=== PATIENT | female | born 1960 | race Caucasian/White ===

== ENCOUNTER 2020-04-17 14:04 | Emergency (ER) | payer MEDICARE, MEDICAID, SELFPAY ==
[2020-04-17 14:05] VITALS: BP 115/66; PULSE 78; RESP 16; TEMP 36.4; O2SAT 96; BMI 27.4
--- NOTE | 2020-04-17 14:29 | CT_ITS ---
STUDY: CT PELVIS WITHOUT CONTRAST REASON FOR EXAM: Female, 59 years old. injury and pain RADIATION DOSAGE (If Supplied By Facility): CTDIvol = ( 28.20 ) mGy, DLP = ( 1048.79 ) mGycm TECHNIQUE: Transaxial imaging of the pelvis was performed with oral contrast, and without intravenous administration of contrast material. Individualized dose optimization techniques were used for this CT. COMPARISON: None. FINDINGS: Normal urinary bladder. Normal visualized small intestine. Normal visualized colon. There is no pelvic fluid. There is no pelvic mass lesion or lymphadenopathy. Normal visualized pelvic arteries. Normal abdominal wall. There are diffuse degenerative changes of the visualized lumbar spine.. Moderate degenerative changes are also noted in the sacroiliac joints and pubic symphysis. Mild degenerative changes are within the hip joints. There is demineralization of the osseous structures suggesting osteopenia. There is no evidence of fracture. CT/Pelvis without IV Contrast IMPRESSION: Degenerative arthrosis and osteopenia of the pelvis. Electronically Signed: Manolo Gilman MD at 16:18 EST Tel , Service support ,
--- NOTE | 2020-04-17 14:29 | CT_ITS ---
STUDY: CT LUMBAR SPINE WITHOUT CONTRAST REASON FOR EXAM: Female, 59 years old. injury and pain RADIATION DOSAGE (If Supplied By Facility): CTDIvol = ( 22.76 ) mGy, DLP = ( 638.59 ) mGycm TECHNIQUE: The patient was scanned in a multi detector CT scanner. High resolution transaxial imaging was performed. Images were obtained . Sagittal and coronal images were reconstructed. Individualized dose optimization techniques were used for this CT. COMPARISON: None FINDINGS: Normal lumbar lordosis. There is 21 degrees dextro scoliosis. Normal vertebrae of the lumbar spine. L1-2: Normal endplates. Normal disc height and morphology. Normal bilateral facet joints. Normal central canal and bilateral lateral recesses. Normal bilateral intervertebral neural foramina. L2-3: Endplate spondylosis. Decreased disc height and small circumferential disc bulge. Degenerative changes of the bilateral facet joints. Mild narrowing of the central canal and bilateral intervertebral neural foramina. L3-4: Endplate spondylosis. Decreased disc height and moderate circumferential disc bulge. 3 mm spondylolisthesis Degenerative changes of the bilateral facet joints. Moderate narrowing of the central canal and bilateral intervertebral neural foramina. L4-5: Endplate spondylosis. Decreased disc height and moderate circumferential disc bulge. 5 mm spondylolisthesis Degenerative changes of the bilateral facet joints. Severe narrowing of the central canal and bilateral intervertebral neural foramina. L5-S1: Endplate spondylosis. Decreased disc height and small circumferential disc bulge. Degenerative changes of the bilateral facet joints. Mild narrowing of the central canal and bilateral intervertebral neural foramina. Normal visualized paraspinous soft tissue structures. CT/Spine Lumbar without Contrast IMPRESSION: Multilevel degenerative changes, as described above. Severe spinal canal stenosis at L4-5. Electronically Signed: Manolo Gilman MD at 16:15 EST Tel , Service support ,
--- NOTE | 2020-04-17 14:30 | ED.VIS.GEN ---
History of Present Illness Chief Complaint: Fall Informant: Patient Narrative: 59-year-old female presenting with pain of the low back and sacrum. She tells me she slipped on the ice about 3 weeks ago and landed in a sitting position. She states that she was expecting it to get better and to be bruised but it continues to hurt. She notes certain movements are worse than others and the cause a grabbing-like pain. She notes some radiation to the leg but no muscle weakness or paresthesias. No loss of bowel or bladder control. She denies any red flag history such as fevers, IVDA, long-term steroid use, or malignancies. She has not seen anybody for this. Past Medical History - Allergies and Home Meds Allergies/Adverse Reactions: Allergies No Known Allergies Allergy (Verified 04/17/20 14:04) Primary Care Physician: Angelito Sweeney DO [STAFF PHYSICIAN] - (call to arrange follow up) Jacque Cee NP, [employer] [Primary Care Provider] - (Call to make follow-up appointment in 1.5 weeks.) Surgical History: noncontributory Smoking Status: Current every day smoker Alcohol: None Drugs: None Review of Systems General: Denies: Chills, Fever, Sweats Eyes: Denies: Visual changes - bilaterally, Diplopia ENT: Denies: Rhinorrhea, Sore throat Cardiovascular: Denies: Chest pain, Palpitations Respiratory: Denies: Dyspnea, Cough, Dyspnea on exertion Gastrointestinal: Denies: Abdominal pain, Nausea, Vomiting, Diarrhea, Melena, Hematochezia Genitourinary: Denies: Dysuria, Hematuria, Frequency Musculoskeletal: Reports: Back pain. Denies: Extremity Pain Skin: Denies: Rash, Wounds Neurological: Denies: Headache, Weakness, Parasthesia, Numbness Physical Exam Vital Signs/Narrative: Vital Signs Temp Pulse Resp BP Pulse Ox 04/17/20 14:05 97.5 F L 78 16 115/66 96 Inital Vital Signs reviewed: Yes General: Well nourished, Well developed, Obese, No Acute Distress Head: Normocephalic, Atraumatic Eyes: Perrl, EOMI ENT: Moist mucous membranes, No rhinorrhea Neck: Supple, Nontender Cardiovascular: Regular rate, Regular rhythm, No murmurs Respiratory: No distress, CTA bilaterally, Chest nontender Abdomen: Soft, Nontender, Nondistended, Normal bowel sounds Back: - - Patient has visual and palpable muscle spasm of the right lumbar paraspinal musculature. She has tenderness in the midline and in the paraspinal musculature. She has tenderness over her sacrum. Extremities: Nontender, No edema Skin: Normal color, No rash Neurological: Alert, Oriented x3, Cranial nerves II-XII grossly intact, Normal Strength, Normal Sensation, Normal DTR Psychological: Normal affect, Normal Mood Diagnostic/Tx/Re-eval Clinical Impression(s) from Imaging Studies Lumbar Spine CT 04/17/20 14:29 IMPRESSION: Multilevel degenerative changes, as described above. Severe spinal canal stenosis at L4-5. Electronically Signed: Manolo Gilman MD at 16:15 EST Tel , Service support , Pelvis CT 04/17/20 14:29 IMPRESSION: Degenerative arthrosis and osteopenia of the pelvis. Electronically Signed: Manolo Gilman MD at 16:18 EST Tel , Service support , - Medical Decision Making Patient received a dose of Toradol. CT of the lumbar spine and pelvis was obtained. ED Disposition - Plan for ED Patient: Disposition: Home or Assisted Living Diagnosis: Spasm of lumbar paraspinous muscle, Strain of muscle, fascia and tendon of lower back, initial encounter, Spinal stenosis at L4-L5 level Instructions: ED Back Sprain/Strain Prescriptions: Oxycodone HCl/Acetaminophen [Percocet 5/325] 1 tab PO Q6H PRN PRN 5 Days #20 tab PRN Reason: Pain Prescription Printed Diazepam [Valium] 5 mg PO Q8 PRN #15 tab PRN Reason: Muscle Spasm Prescription Printed Referrals: Jacque Cee NP, [employer] [Primary Care Provider] - (Call to make follow-up appointment in 1.5 weeks.) Angelito Sweeney DO [STAFF PHYSICIAN] - (call to arrange follow up)
[2020-04-17] MEDS: Ketorolac 60 MG/2 ML Vial IM (14:39)
[2020-04-17 17:21] VITALS: BP 168/87; PULSE 68; RESP 16; O2SAT 98
== END 2020-04-17 17:22 | disposition home or self-care (01) ==
PROVIDERS: Emergency Provider Emergency Medicine; PCP Nurse Practitioner Family
DX: M62.830 Muscle spasm of back (principal); S39.012A Strain of muscle, fascia and tendon of lower back, initial encounter; M48.061 Spinal stenosis, lumbar region without neurogenic claudication; F17.200 Nicotine dependence, unspecified, uncomplicated; E66.9 Obesity, unspecified; X58.XXXA Exposure to other specified factors, initial encounter
CPT/HCPCS: 72131; 72192; 96372; 99282

== ENCOUNTER → 2020-05-05 12:40 | Outpatient (CLI) | payer MEDICARE, MEDICAID, SELFPAY ==
--- NOTE | 2020-05-05 12:40 | MRI_ITS ---
STUDY: MRI LUMBAR SPINE WITHOUT CONTRAST REASON FOR EXAM: Female, 59 years old. lumbar pain after fall on ice last month L and gt;R TECHNIQUE: Standardized fat and water weighted pulse sequences were obtained in the sagittal and axial planes. COMPARISON: CT pelvis 04/17/2020. FINDINGS: Quality: Adequate. Multiple sequences are degraded by patient motion. T12-L1: Normal endplates. Disc dehydration. Normal bilateral facet joints. Normal central canal and bilateral lateral recesses. Normal bilateral intervertebral neural foramina. Normal lumbar lordosis. Mild lumbar dextroscoliosis. Normal conus medullaris that terminates at the L1 level. L1-2: Disc dehydration. Mild, noncompressive spondylotic bar. No disc protrusion or canal stenosis. Foramina are patent. L2-3: Disc dehydration. Mild, noncompressive spondylotic bar. No disc protrusion or canal stenosis. Foramina are patent. L3-4: Disc dehydration. No disc protrusion or canal stenosis. Moderate facet hypertrophy. Mild left foraminal encroachment due to spurring. L4-5: Disc dehydration and mild disc space narrowing. 3 mm anterolisthesis. Moderate facet hypertrophy. Bilateral facet joint effusions. L5-S1: Disc dehydration. Small, central, noncompressive disc protrusion and annular fissure. No canal stenosis. Foramina are patent. Marrow edema in the right L5 pedicle and L5 inferior articular facet, suspicious for stress injury or insufficiency fracture. Fracture line is not demonstrated. There is trace marrow edema in the left pedicle. There is diffuse marrow edema of the visualized sacrum suspicious for insufficiency fracture. This is not apparent on the prior CT scan. Mild edema in the right paraspinal soft tissues at the L4 level. MRI/Spine Lumbar (Routine) IMPRESSION: 1. Marrow edema of the visualized sacrum highly suspicious for insufficiency fracture. 2. Marrow edema in the L5 posterior elements consistent with stress injury or insufficiency fracture without demonstrated fracture line. 3. Soft tissue edema in the right paraspinous soft tissues at the L4 level. 4. L4-5 facet hypertrophy with joint fusions, likely due to arthrosis. 5. L5-S1 annular fissure. 6. L4-5 anterolisthesis. 7. Mild dextroscoliosis. Electronically Signed: Cari Eugene MD at 23:42 EDT Tel , Service support ,
== END ==
PROVIDERS: PCP Nurse Practitioner Family; Referring Provider Orthopaedic Surgery; Visit Provider Orthopaedic Surgery
DX: M54.16 Radiculopathy, lumbar region (principal)
CPT/HCPCS: 72148

== ENCOUNTER 2021-07-24 12:48 | Inpatient (IN) | payer MEDICARE, MEDICAID, SELFPAY ==
--- NOTE | 2021-07-24 12:56 | PCM.HP.STD ---
HPI - General General Date of Admission: 07/24/21 Date of Service: 07/24/21 Chief Complaint: Bright red rectal bleeding HPI Narrative MARIZA DOYLE, is a 60 F who presents to [facility] as a direct admission to [place] [address], she was transferred from the emergency room at [facility] where she went for evaluation of bright red rectal bleeding that started late last night. Patient arrived in the emergency room at about approximately 2 AM she states, she has had bowel movements with bright red blood, she states the rectal bleeding is painless, she denies any melanotic stools. Patient has a history of colitis years ago, she states she underwent a resection of her bowel (it appears on the patient's CAT scan it was her sigmoid colon area) in 2011, she states that she had a colostomy for a period of time and finally it was reversed. Patient denies any history of ulcerative colitis or Crohn's disease, she has never taken any medication for inflammatory bowel disease. Patient states before her transfer to the hospital here today, she had 1 bowel movement at [facility] that had no blood visible in the bowel movement. Coincidentally, patient has had a dry cough for the last few days along with nasal congestion, COVID-19 antigen test was performed in the emergency room at [facility] and this was positive. Patient has no complaints of any shortness of breath, chills, or fever. Labs were reviewed, her initial hemoglobin was 10.9, white blood cell count was normal, patient's lab also revealed a sodium of 122, potassium of 3.3, and a chloride of 88. Otherwise her chemistry profile was virtually unremarkable. Patient had a repeat hemoglobin performed at approximately 815 this morning and it was 10.2. Patient also underwent a CT of the abdomen and pelvis with IV contrast-it showed no grossly thickened bowel loops, no bowel obstruction, sigmoid colon anastomosis was visible, and there was no free air or fluid. No evidence of a stone was identified in the ureters. A normal appendix was seen. Patient was admitted to [place] [address], she will be seen by GI-she may undergo a colonoscopy at the discretion of GI, repeat CBC will be performed later today and she will be placed on IV normal saline and given oral potassium x1. I suspect that the patient has a diverticular bleed, it may be that her previous episode 11 years ago which resulted in a partial colectomy was due to diverticulitis with possible perforation-it is hard to tell from the patient's history. PFSH Medical History (Updated 04/26/20 @ 14:34 by Jennifer Scott) Former smoker History of colitis HTN (hypertension) hx of ganesh in left femur Hx Thyroid Removal Home Medications ascorbic [id number] 1,000 mg PO DAILY 09/02/16 [History Last Taken Unknown] levothyroxine 150 mcg PO DAILY 09/02/16 [History Last Taken 07/23/21] cholecalciferol (vitamin D3) 1,000 unit PO DAILY 04/17/20 [History Last Taken Unknown] lisinopril 20 mg-hydrochlorothiazide 12.5 mg tablet 2 tab PO DAILY tab 04/24/20 [History Last Taken 07/23/21] albuterol sulfate [Ventolin HFA] 2 puff INHALATION Q4H PRN PRN 07/24/21 [History Last Taken Unknown] Allergy/AdvReac Type Severity Reaction Status Date / Time No Known Allergies Allergy Verified 04/17/20 14:04 Family History (Updated 04/24/20 @ 15:07 by Jennifer Scott) Father Hypertension Diabetes Mother CVA (cerebral vascular accident) Grandmother Cancer Surgical History (Updated 07/24/21 @ 13:16 by Sally Astorga) H/O thyroidectomy Hx of hernia repair Social History (Updated 05/08/20 @ 12:[address] Angelito Sweeney, DO) Smoking Status: Former smoker Tobacco: How many years used: 20 alcohol intake: never ROS Constitutional Constitutional: Denies anorexia, change in weight, fever(s), night sweats or weakness Eyes Eyes: Denies blurry vision, change in vision, discharge from eye(s) or eye pain ENT HEENT: Denies abnormal hearing or headache(s) Cardiovascular Cardiovascular: Denies chest pain, claudication, dyspnea on exertion, edema or palpitations Respiratory/Chest Respiratory/Chest: Reports cough; Denies hemoptysis, shortness of breath at rest or shortness of breath with exertion Gastrointestinal Gastrointestinal: Reports hematochezia and loose stools; Denies abdominal pain, constipation, diarrhea, hematemesis, melena, nausea or vomiting Genitourinary Genitourinary: Denies dysuria, hematuria, urinary frequency, urinary hesitancy, urinary incontinence or urinary urgency Musculoskeletal Musculoskeletal: Denies back pain, joint pain, joint stiffness, joint swelling, myalgias or neck pain Neurologic Neurologic: Denies abnormal gait, abnormal speech, dizziness, focal weakness, headache(s), loss of vision, numbness, other visual disturbances, paresthesias, syncope or tingling Psychiatric Psychiatric: Denies anxiety, cognitive impairment, depression, irritability, mood swings or suicidal ideation Endocrine Endocrinology: Denies change in body appearance, cold intolerance, excessive sweating, heat intolerance, polydipsia or polyuria Hematologic/Lymphatic Hematologic/Lymphatic: Denies none, anemia, easy bleeding, easy bruising or lymphadenopathy Allergic/Immunologic Allergic/Immunologic: Denies rhinitis, urticaria, eczemia or asthma Physical Exam Const alert, oriented x3, no apparent distress, average body habitus and healthy appearing General Appearance: cooperative, well kempt and well developed Orientation / Consciousness: awake, oriented to person, oriented to place and oriented to time HEENT normocephalic, head/scalp atraumatic and moist oral mucous membranes Eyes PERRL, EOMs intact bilaterally and conjunctivae normal Neck nuchal rigidity, supple, no JVD, thyroid normal and no carotid bruits General: trachea midline Resp normal respiratory effort, no retractions, no use of accessory muscles and clear to auscultation bilaterally Auscultation: Negative for rales, rhonchi or wheezes Cardio regular rate, regular rhythm, S1 normal heart sound, S2 normal heart sound, no murmurs, no rub and no gallops GI normal to inspection, nondistended, normoactive bowel sounds, soft to palpation, non-tender and non-distended Extremity no clubbing, cyanosis or edema Skin no rashes or lesions noted and no wounds General Skin Exam: no breakdown Neuro oriented x3, CN's II-XII intact bilaterally, no focal motor deficits and no sensory deficits noted Sensorium / Orientation: awake and alert Speech: speech normal Psych affect normal Assessment & Plan Assessment/Plan (1) COPD (chronic obstructive pulmonary disease): PLAN: 1. Lower GI bleed-probably secondary to diverticular hemorrhage, patient was admitted to [facility] 3, gastroenterology will be consulted, patient may undergo colonoscopy tomorrow-I will leave this decision to gastroenterology due to the fact the patient does not appear to be actively bleeding at this time. CBC will be monitored. #2 hyponatremia with hypochloremia-probably secondary to diuretic usage, patient takes 50 mg of hydrochlorothiazide daily-I will omit this medication while she is in the hospital and place her on losartan 100 mg daily. #3 hypokalemia-secondary to diuretic use-this is mild, oral potassium will be given, labs will be rechecked tomorrow morning #4 COVID-19 infection without respiratory embarrassment-patient will need to be in COVID-19 droplet precautions, she has had 2 doses of the vaccine, I do not feel she needs to take Paxlovid #5 essential hypertension-again patient will be placed on losartan, she will have to be placed on potassium supplementation when she is discharged home on her same medications. #6 chronic obstructive pulmonary disease-by history-patient uses an albuterol inhaler as needed, I will place her on albuterol breathing treatments every 2 hours as needed #7 hypothyroidism-patient is on Synthroid Charges/Coding Visit Charges Inpatient E&M: 62770 Init Hosp L3
[2021-07-24 12:57] VITALS: RESP 16; O2SAT 95
[2021-07-24 13:04] VITALS: BP 130/84; PULSE 85; RESP 18; TEMP 36.8; O2SAT 100; BMI 29.9
--- NOTE | 2021-07-24 17:09 | CON.PCM_ITS ---
Assessment & Plan Assessment/Plan (1) Lower GI bleed: PLAN: The differential diagnosis for lower GI bleed in her would be a hemorrhoidal bleed, stercoral ulcer, diverticular, irritation at the anastomosis, less likely anal fissure or neoplasia. Also less likely would be upper GI bleed with rapid transit, telangiectasia or arterial venous malformation. I agree with following her hemoglobin as she is not actively bleeding at this time. If she does continue to bleed or become more anemic, Then she will need an endoscopic evaluation. Thank you very much for allowing me to precipitate in care of this patient. HPI Consult Data Date of Consult: 07/24/21 HPI Narrative HPI Narrative: MARIZA DOYLE, is a 60 F who presents as a transfer from [facility] for evaluation of lower GI bleeding. Patient arrived in the emergency room at about approximately 2 AM she states, she has had bowel movements with bright red blood, she states the rectal bleeding is painless, she denies any melanotic stools. She does have a history of surgery to the large bowel requiring a temporary colostomy and reversal. She was told that she had a history of colitis but has not been on any medicines since the reversal of her colostomy. She denies any rash, arthralgia, muscle aches or fatigue. She is taking steroidals. She has no problems with bleeding or clotting. She is never been diagnosed with anemia. She denies any weakness or fatigue. She has been complaining of a dry cough and some mild nasal congestion. A COVID antigen test was performed at outside hospital and it was positive. She is known chest pain, shortness of breath, fever or chills. Initial hemoglobin was 10.9, white blood cell count was normal, patient's lab also revealed a sodium of 122, potassium of 3.3, and a chloride of 88. O Patient had a repeat hemoglobin performed at approximately 815 this morning and it was 10.2. Patient also underwent a CT of the abdomen and pelvis with IV contrast-it showed no grossly thickened bowel loops, no bowel obstruction, sigmoid colon anastomosis was visible, and there was no free air or fluid. No evidence of a stone was identified in the ureters. A normal appendix was seen. [facility] Medical History (Updated 07/24/21 @ 17:[address] Nesbitt Friend, DO) Former smoker History of colitis HTN (hypertension) hx of ganesh in left femur Hx Thyroid Removal Home Medications ascorbic [id number]-dec 1,000 mg PO DAILY 09/02/16 [History Last Taken Unknown] levothyroxine 150 mcg PO DAILY 09/02/16 [History Last Taken 07/23/21] cholecalciferol (vitamin D3) 1,000 unit PO DAILY 04/17/20 [History Last Taken Unknown] lisinopril 20 mg-hydrochlorothiazide 12.5 mg tablet 2 tab PO DAILY tab 04/24/20 [History Last Taken 07/23/21] albuterol sulfate [Ventolin HFA] 2 puff INHALATION Q4H PRN PRN 07/24/21 [History Last Taken Unknown] Allergy/AdvReac Type Severity Reaction Status Date / Time No Known Allergies Allergy Verified 04/17/20 14:04 Family History (Updated 04/24/20 @ 15:07 by Jennifer Scott) Father Hypertension Diabetes Mother CVA (cerebral vascular accident) Grandmother Cancer Surgical History (Updated 07/24/21 @ 13:16 by Sally Astorga) H/O thyroidectomy Hx of hernia repair Social History (Updated 05/08/20 @ 12:[address] Angelito Sweeney, DO) Smoking Status: Former smoker Tobacco: How many years used: 20 alcohol intake: never ROS Gastrointestinal Gastrointestinal: Reports hematochezia Physical Exam Const alert General Appearance: cooperative Orientation / Consciousness: oriented to person HEENT hearing grossly normal bilaterally Head and Scalp: normal to inspection Face and Sinus: face symmetric Nose: external nose normal Mouth: oral and palatal mucosa normal Eyes conjunctivae normal General Eye: normal appearance of both eyes Neck full ROM General: normal visual inspection Lymph Lymphatic: no lymphadenopathy noted Chest inspection of chest normal and palpation of chest normal Chest: symmetrical chest wall rise Resp normal respiratory effort Effort and Inspection: able to speak in complete sentences Cardio regular rate GI non-distended Percussion: normal to percussion Rectal Exam: deferred Neuro Speech: speech normal Gait (Neuro): normal gait
[2021-07-24 17:34] VITALS: BP 172/85; PULSE 82; RESP 18; TEMP 36.9; O2SAT 100
[2021-07-24] MEDS: 0.9% Normal Saline 1,000 ML 100 ML IV (17:40)
[2021-07-24] MEDS: Potassium Chloride Oral Tablet 20 MEQ 40 MEQ PO (17:44)
[2021-07-24] MEDS: Losartan Potassium 100 MG Tablet PO (17:45)
[2021-07-24 17:55] LABS: Absolute Lymphocyte Count 1.69 X10^3/uL (0.83-4.51); Absolute Neutrophil Count 3.1 X10^3/uL (2.0-7.7); Basophil# 0.03 X10^3/uL; Basophil% 0.5 % (0-1); Eosinophils% 3.7 % (0-5); Hematocrit 28.5 % (37-47); Hemoglobin 9.6 g/dL (12.0-15.0); Lymphocyte # 1.69 X10^3/ul (0.83-4.51); Mean Corp Hgb Conc 33.7 g/dL (32-36); Mean Corpuscular Hgb 30.2 pg (27.0-32.0); Mean Corpuscular Volume 89.6 fL (81-99); Mean Platelet Vol. 8.6 fl (6.2-12.0); Monocyte# 0.45 X10^3/uL; Monocyte% 8.2 % (0-10); NRBC Flagged by Analyzer 0 % (0-5); Neutrophil # 3.06 X10^3/uL (2.7-7.7); Neutrophil % 56.1 % (47-70); Platelet Count 275 K/mm3 (150-450); RBC Distribution Width CV 13.7 % (11.6-14.6); RBC Distribution Width SD 45.1 fl (35.1-43.9); Red Blood Count 3.18 M/mm3 (4.2-5.4); White Blood Count 5.5 K/mm3 (4.4-11.0)
[2021-07-24 20:56] VITALS: BP 175/90; PULSE 84; RESP 18; TEMP 37.1; O2SAT 98
[2021-07-24 23:00] VITALS: BP 180/92
[2021-07-24 23:01] VITALS: BP 180/92; PULSE 88
[2021-07-24] MEDS: hydrALAZINE 20 MG/ML Vial 10 MG IV (23:01)
[2021-07-24] MEDS: 0.9% Saline Lock 10 ML Syringe IV (23:02)
[2021-07-25] VITALS (8 sets, daily range): BP systolic 149–176; BP diastolic 73–93; PULSE 84–94; RESP 16–20; TEMP 36.6–37; O2SAT 98–100
[2021-07-25] MEDS: 0.9% Normal Saline 1,000 ML 100 ML IV (02:30)
[2021-07-25 06:16] LABS: Anion Gap 8 (5-15); BUN 3 mg/dL (7-18); Calcium,Total 7.9 mg/dL (8.5-10.1); Chloride 102 mmol/L (98-107); Creatinine, Serum 0.38 mg/dL (0.55-1.02); EST Glomerular Filtration Rate 184 mL/min (>60); Est Glom Filt Rate - Afr Amer 222 mL/min (>60); Estimated Creatinine Clearance 138.13 ml/min; Glucose 108 mg/dL (74-106); Potassium 3.4 mmol/L (3.5-5.1); Sodium Level 133 mmol/L (136-145)
[2021-07-25 06:24] LABS: Absolute Lymphocyte Count 1.57 X10^3/uL (0.83-4.51); Absolute Neutrophil Count 2.9 X10^3/uL (2.0-7.7); Basophil# 0.04 X10^3/uL; Basophil% 0.7 % (0-1); Eosinophil# 0.35 X10^3/uL; Eosinophils% 6.5 % (0-5); Hematocrit 26.4 % (37-47); Hemoglobin 8.6 g/dL (12.0-15.0); Lymphocyte # 1.57 X10^3/ul (0.83-4.51); Lymphocyte % 29.3 % (19-41); Mean Corp Hgb Conc 32.6 g/dL (32-36); Mean Corpuscular Hgb 29.4 pg (27.0-32.0); Mean Corpuscular Volume 90.1 fL (81-99); Mean Platelet Vol. 9.2 fl (6.2-12.0); Monocyte# 0.44 X10^3/uL; Monocyte% 8.2 % (0-10); NRBC Flagged by Analyzer 0 % (0-5); Neutrophil # 2.92 X10^3/uL (2.7-7.7); Neutrophil % 54.7 % (47-70); Platelet Count 283 K/mm3 (150-450); RBC Distribution Width CV 13.8 % (11.6-14.6); RBC Distribution Width SD 45.4 fl (35.1-43.9); Red Blood Count 2.93 M/mm3 (4.2-5.4); White Blood Count 5.4 K/mm3 (4.4-11.0)
[2021-07-25] MEDS: Levothyroxine 150 MCG Tablet PO (06:45)
[2021-07-25] MEDS: Acetaminophen 325 MG Tablet 650 MG PO ×2 (06:52→22:52)
[2021-07-25] MEDS: Losartan Potassium 100 MG Tablet PO (10:14)
--- NOTE | 2021-07-25 14:00 | CASEMGMT ---
MARILIN JEFFRIES Assessment: Face to Face with pt for initial transition planning/care coordination assessment. RN NESHA introduced self and role at [facility], pt voices understanding and consents to assessment. Pt sitting up in bed on RA in no distress. Pt is A/O x4 and answers all questions appropriately at this time. Care providers, pharmacy, and demographics verified/updated. Admitting Dx: hyponatremia/GIB PCP:Jacque Cee [employer]QUIPMENT SUPERINTENDENT Specialists: Pt denies. [facility]erred [facility]acy: [facility] Insurance: [facility] [employer] Prescription Benefit: yes LW/HPOA: Pt denies having a LW/DPOA and denies need for info regarding AD. LNOK: Penny Lynn, sister; Turner Barrios, son Living Arrangements: Pt lives with dtr and 2 grandsons in a mobile home with 3 steps to enter with a rail. Pt reports she is I in ADL's and denies concerns at home. Transportation: Pt drives self and denies concerns with transportation. She does not have a vehicle but uses the neighbor's. DME/HHC/SNF: Pt denies having any DME in the home but states she has access to it if needed. Pt has had HHC in the past and been in a SNF but is unsure of the name of either. States the SNF was in [place]. Pt was first tested for COVID at [facility]. Pt states she is unable to quarantine at home from her family by using separate bedrooms or bathrooms. Pt states no concerns with going home at time of dc. She denies the need for any homegoing services. Pt states no further concerns/needs. CM to follow. Advised pt to ask CM if any further question/concerns/needs arise, voices understanding. Pt Goal: Home Plan: Home
[2021-07-25] MEDS: hydrALAZINE 20 MG/ML Vial 10 MG IV ×2 (15:58→22:55)
[2021-07-25] MEDS: 0.9% Saline Lock 10 ML Syringe IV (15:58)
[2021-07-25 17:08] LABS: Hematocrit 29.6 % (37-47); Hemoglobin 9.7 g/dL (12.0-15.0)
--- NOTE | 2021-07-25 17:26 | PN_ITS ---
Subjective Subjective She is doing very well and has not had any signs and symptoms of GI bleeding since being in the hospital over the last 24 hours. She has not had any abdominal pain and is tolerating a diet. She is still having very loose stools. Objective Data Objective Data Vital Signs: Vital Signs Temp Pulse Resp BP Pulse Ox 98.1 F 88 16 166/80 H 100 07/25/21 14:56 07/25/21 15:58 07/25/21 14:56 07/25/21 15:54 07/25/21 14:56 Oxygen Delivery Method Room Air Weight: 179 lb 10.828 oz Body Mass Index (BMI) 29.9 Intake & Output: Intake and Output for Last 24 Hours 07/23/21 07/24/21 07/25/21 23:59 23:59 23:59 Intake Total 2783.33 / 2783.33 Balance 2783.33 / 2783.33 Lab / Micro Data Result Diagrams: 07/25/21 16:57 07/25/21 04:33 Labs: Laboratory Results - last 24 hr 07/24/21 17:43: WBC 5.5, RBC 3.18 L, Hgb 9.6 L, Hct 28.5 L, MCV 89.6, MCH 30.2, MCHC 33.7, RDW Std Deviation 45.1 H, RDW Coeff of All 13.7, Plt Count 275, MPV 8.6, Immature Gran % (Auto) 0.500, Neut % (Auto) 56.1, Lymph % (Auto) 31.0, [place] % (Auto) 8.2, Eos % (Auto) 3.7, Baso % (Auto) 0.5, Absolute Neuts (auto) 3.1, Absolute Lymphs (auto) 1.69, Nucleated RBC % 0 07/25/21 04:33: WBC 5.4, RBC 2.93 L, Hgb 8.6 L, Hct 26.4 L, MCV 90.1, MCH 29.4, MCHC 32.6, RDW Std Deviation 45.4 H, RDW Coeff of All 13.8, Plt Count 283, MPV 9.2, Immature Gran % (Auto) 0.600, Neut % (Auto) 54.7, Lymph % (Auto) 29.3, [place] % (Auto) 8.2, Eos % (Auto) 6.5 H, Baso % (Auto) 0.7, Absolute Neuts (auto) 2.9, Absolute Lymphs (auto) 1.57, Nucleated RBC % 0 07/25/21 04:33: Sodium 133 L, Potassium 3.4 L, Chloride 102, Carbon Dioxide 23.0, Anion Gap 8, BUN 3 L, Creatinine 0.38 L, Estim Creat Clear Calc 138.13, Est GFR (MDRD) Af Amer 222, Est GFR (MDRD) Non-Af 184, BUN/Creatinine Ratio 8.0 L, Glucose 108 H, Calcium 7.9 L 07/25/21 16:57: Hgb 9.7 L, Hct 29.6 L Physical Exam Const alert General Appearance: cooperative Orientation / Consciousness: oriented to person HEENT hearing grossly normal bilaterally Head and Scalp: normal to inspection Face and Sinus: face symmetric Nose: external nose normal Mouth: oral and palatal mucosa normal Eyes conjunctivae normal General Eye: normal appearance of both eyes Neck full ROM General: normal visual inspection Lymph Lymphatic: no lymphadenopathy noted Chest inspection of chest normal and palpation of chest normal Chest: symmetrical chest wall rise Resp normal respiratory effort Effort and Inspection: able to speak in complete sentences Cardio regular rate GI non-distended Percussion: normal to percussion Rectal Exam: deferred Neuro Speech: speech normal Gait (Neuro): normal gait Assessment & Plan Assessment/Plan (1) Lower GI bleed: PLAN: Differential diagnosis for lower GI bleed could be ulcerative colitis or Crohn's disease. Her hemoglobin is improving and her stools are back at baseline. She is tolerating a diet. Since she has active COVID-19 and her symptoms are improving as well as her hemoglobin is back up to 9.7 I would hardy ggest that she get the rest of her GI work-up as an outpatient.
--- NOTE | 2021-07-25 20:00 | PCM.PN.HOSP ---
Subjective Subjective Patient was seen and examined today, earlier today her hemoglobin was 8.6, it was repeated this afternoon and it was 9.7. Patient has had no rectal bleeding today, I advanced her diet at her request today, she is minimally symptomatic with COVID-19 and has no respiratory distress. Objective Data Objective Data Vital Signs: Vital Signs Temp Pulse Resp BP Pulse Ox 98.1 F 88 16 166/80 H 100 07/25/21 14:56 07/25/21 15:58 07/25/21 14:56 07/25/21 15:54 07/25/21 14:56 Oxygen Delivery Method Room Air Weight: 81.5 kg Body Mass Index (BMI) 29.9 Intake & Output: Intake and Output for Last 24 Hours 07/23/21 07/24/21 07/25/21 23:59 23:59 23:59 Intake Total 3283.33 / 3283.33 Balance 3283.33 / 3283.33 Lab / Micro Data Result Diagrams: 07/25/21 16:57 07/25/21 04:33 Labs: Laboratory Results - last 24 hr 07/25/21 04:33: WBC 5.4, RBC 2.93 L, Hgb 8.6 L, Hct 26.4 L, MCV 90.1, MCH 29.4, MCHC 32.6, RDW Std Deviation 45.4 H, RDW Coeff of All 13.8, Plt Count 283, MPV 9.2, Immature Gran % (Auto) 0.600, Neut % (Auto) 54.7, Lymph % (Auto) 29.3, [place] % (Auto) 8.2, Eos % (Auto) 6.5 H, Baso % (Auto) 0.7, Absolute Neuts (auto) 2.9, Absolute Lymphs (auto) 1.57, Nucleated RBC % 0 07/25/21 04:33: Sodium 133 L, Potassium 3.4 L, Chloride 102, Carbon Dioxide 23.0, Anion Gap 8, BUN 3 L, Creatinine 0.38 L, Estim Creat Clear Calc 138.13, Est GFR (MDRD) Af Amer 222, Est GFR (MDRD) Non-Af 184, BUN/Creatinine Ratio 8.0 L, Glucose 108 H, Calcium 7.9 L 07/25/21 16:57: Hgb 9.7 L, Hct 29.6 L Physical Exam Const alert, no apparent distress and average body habitus General Appearance: cooperative Orientation / Consciousness: awake, oriented to person, oriented to place and oriented to time HEENT hearing grossly normal bilaterally Head and Scalp: normal to inspection Face and Sinus: face symmetric Nose: external nose normal Mouth: oral and palatal mucosa normal Eyes PERRL and conjunctivae normal General Eye: normal appearance of both eyes Neck full ROM General: normal visual inspection Lymph Lymphatic: no lymphadenopathy noted Chest inspection of chest normal and palpation of chest normal Chest: symmetrical chest wall rise Resp normal respiratory effort, no retractions, no use of accessory muscles and clear to auscultation bilaterally Effort and Inspection: able to speak in complete sentences Auscultation: Negative for rales, rhonchi or wheezes Cardio regular rate, regular rhythm, S1 normal heart sound, S2 normal heart sound and no murmurs GI normal to inspection, nondistended, normoactive bowel sounds, soft to palpation and non-distended Percussion: normal to percussion Rectal Exam: deferred Extremity no clubbing, cyanosis or edema Skin no rashes or lesions noted General Skin Exam: no breakdown Neuro oriented x3, CN's II-XII intact bilaterally, no focal motor deficits and no sensory deficits noted Sensorium / Orientation: awake, alert, oriented to person, oriented to place and oriented to time Speech: speech normal Gait (Neuro): normal gait Psych affect normal Assessment & Plan Assessment/Plan (1) Lower GI bleed: PLAN: Plan 1. Lower GI bleed-probably diverticular in nature, now resolved, patient appears medically stable at this time, I will repeat her H&H in the morning and determine whether she is stable for discharge home. Gastroenterology does not want to perform a colonoscopy at this time and patient appears medically stable. #2 COVID-19 infection-without respiratory embarrassment or severe symptomology, no treatment necessary #3 chronic obstructive pulmonary disease-this is stable at this time, continue present medication #4 hypokalemia-patient's potassium today was 3.4, I will repeat her labs tomorrow #5 hyponatremia-this is improved today, labs will be repeated tomorrow #6 essential hypertension-patient's blood pressures been under fair control at this time, I will reevaluate her tomorrow #7 hypothyroidism-patient is on Synthroid
[2021-07-26 03:12] VITALS: O2SAT 98
[2021-07-26 04:39] VITALS: BP 150/83; PULSE 88; RESP 20; TEMP 36.6; O2SAT 99
[2021-07-26] MEDS: Levothyroxine 150 MCG Tablet PO (04:43)
[2021-07-26] MEDS: Acetaminophen 325 MG Tablet 650 MG PO (04:50)
[2021-07-26 06:40] LABS: Hematocrit 26.7 % (37-47); Hemoglobin 8.9 g/dL (12.0-15.0)
[2021-07-26 07:04] LABS: Anion Gap 7 (5-15); BUN 4 mg/dL (7-18); BUN/Creat Ratio 9.2 RATIO (10-20); Calcium,Total 8.2 mg/dL (8.5-10.1); Chloride 97 mmol/L (98-107); Creatinine, Serum 0.43 mg/dL (0.55-1.02); EST Glomerular Filtration Rate 157 mL/min (>60); Est Glom Filt Rate - Afr Amer 189 mL/min (>60); Estimated Creatinine Clearance 122.06 ml/min; Glucose 109 mg/dL (74-106); Potassium 3.4 mmol/L (3.5-5.1); Sodium Level 129 mmol/L (136-145)
[2021-07-26] MEDS: Losartan Potassium 100 MG Tablet PO (09:38)
[2021-07-26 10:30] VITALS: BP 142/87; PULSE 76; RESP 18; TEMP 36.6; O2SAT 99
--- NOTE | 2021-07-26 11:02 | DCINST_ITS ---
Discharge Instructions Diet Discharge Diet: No restrictions Activity Discharge Activity: Return to Normal Activity May resume sexual activity in: No Restrictions Weight Bearing Status: Full weight bearing Follow Up Care Test Results: Test results from this visit will be discussed in further detail at your follow- up appointment, if applicable. Discharge Plan Admission Admit Date/Time: 07/24/21 14:52 Primary Reason for Your Visit: diverticular bleed, COVID Attending Provider: Donovan Dumas Primary Care Provider: Jacque Cee NP Discharge Orders/Prescriptions Prescriptions: New potassium chloride 10 mEq capsule, extended release 20 meq PO BID Qty: 120 0RF Continued lisinopril-hydrochlorothiazide 20-12.5 mg tablet 2 tab PO DAILY Label Comments: TAKE 2 TABLETS BY MOUTH ONCE DAILY levothyroxine 150 MCG tablet 150 mcg PO DAILY ascorbic ldef-cypdmozp-xit 1,000 MG powder effervescent in packet 1,000 mg PO DAILY cholecalciferol (vitamin D3) 1,000 UNIT tablet 1,000 unit PO DAILY albuterol sulfate [Ventolin HFA] 90 mcg/actuation HFA aerosol inhaler 2 puff INHALATION Q4H PRN PRN (Reason: Shortness Of Breath) Label Comments: INHALE 2 PUFFS BY MOUTH EVERY 4 HOURS NEEDED FOR SHORTNESS OF BREATH, WHEEZING, PERSISTENT COUGH Referrals / Follow Up: Jacque Cee NP, [facility] [Primary Care Provider] - See Referral Note (call for follow up appointment) Disposition Disposition (needs filled in before D/C Order can be placed): Home, Self Care
--- NOTE | 2021-07-27 17:04 | DS.PCM_ITS ---
Providers Date of Admission: 07/24/21 Date of Discharge: 07/26/21 Primary Care Physician: KIKA Balderas Consultations 07/24/21 15:19 Consult: Gastroenterology Routine Consulting Provider: [facility] Reason for Consult: red rectal bleeding EMERGENT Consult: No MD Notified: Yes Date Notified: 07/24/21 Time Notified: 15:03 Method of Notification: Verbal Reason For Visit: HYPONATRIMIA/GI BLEED Diagnosis Discharge Diagnosis (1) Lower GI bleed: Status: Acute Code(s): K92.2 - Gastrointestinal hemorrhage, unspecified Plan 1.? Lower GI bleed-probably diverticular in nature #2 COVID-19 infection-without respiratory embarrassment or severe symptomology #3 chronic obstructive pulmonary disease #4 hypokalemia #5 hyponatremia- #6 essential hypertension #7 hypothyroidism Medications at Discharge Home Medications ascorbic acid 1,000 xf-kfurqgohfnwv-xslxzilz powder effervescent pack 1,000 mg PO DAILY 09/02/16 levothyroxine 150 mcg tablet 150 mcg PO DAILY thyroid 09/02/16 cholecalciferol (vitamin D3) 25 mcg (1,000 unit) tablet 1,000 unit PO DAILY 04/17/20 lisinopril 20 mg-hydrochlorothiazide 12.5 mg tablet 2 tab PO DAILY 04/24/20 albuterol sulfate 90 mcg/actuation aerosol inhaler (Ventolin HFA) 2 puff inhalation Q4H PRN PRN Shortness Of Breath 07/24/21 potassium chloride 10 mEq capsule,extended release 20 meq PO BID #120 caps 07/26/21 Hospital Course Operations None Procedures None Summary of Care Provided Minutes Spent on Discharge: 32 Hospital Course: This 60-year-old white female was a direct admission to [place] [id number] from an outside emergency room where she went for evaluation of rectal bleeding. Patient also tested positive for [id number] had minimal symptomology cons isting of nasal congestion and a slight cough. Patient was seen in consultation by gastroenterology, it was felt that a prudent approach to her care would be to monitor her hemoglobin and not subject her to any endoscopy procedures due to her positive COVID status unless she continued to have rectal bleeding. It was felt that her rectal bleeding was probably secondary to diverticular bleeding. Patient's condition stabilized during her hospital stay, she had cessation of her rectal bleeding. On 07/26/2021, patient was seen and examined: On examination she appeared in good health and spirits, she does not appear to be in any distress. Vital signs as documented. Skin warm and dry and without overt rashes. Neck without JVD, thyroid appears normal, trachea is midline, neck is supple. Lungs clear, normal air movement was noted. Heart exam notable for regular rhythm, normal sounds and absence of murmurs, rubs or gallops. Abdomen unremarkable and without evidence of organomegaly, masses, or abdominal aortic enlargement, bowel sounds are present in all 4 quadrants, no abdominal tenderness was noted. Extremities nonedematous, no cyanosis was noted, no clubbing was noted. Neuro: Cranial n erves II through XII are grossly intact, no focal motor deficits were noted, sensation to light touch and pinprick is intact, motor exam 5/5 throughout. Psych: Patient is alert and oriented x3, she does not appear anxious or depressed, she does not appear agitated. On 07/26/2021, patient was seen and examined and felt to be stable for discharge home. Weight / BMI Weight Weight: 81.5 kg Body Mass Index (BMI) 29.9 ABG / Lab / Microbiology Data Result Diagrams: 07/26/21 06:18 07/26/21 06:18 D/C Instructions Discharge Diet: No restrictions May resume sexual activity in: No Restrictions Weight Bearing Status: Full weight bearing Meaningful Use Info Meaningful Use Diagnoses (Choose all that apply): None applicable Discharge Plan Admission Admit Date/Time: 07/24/21 14:52 Primary Reason for Your Visit: diverticular bleed, COVID Attending Provider: Donovan Dumas Primary Care Provider: Jacque Cee NP Instructions Additional Instructions / Restrictions: Patient Problems: Altered Health Status related to Hospitalization Patient Goals: *Optimal Level of Health *Keep Appointments *Medication Compliance *Remain Safe Discharge Orders/Prescriptions Prescriptions: New potassium chloride 10 mEq capsule, extended release 20 meq PO BID Qty: 120 0RF Continued lisinopril-hydrochlorothiazide 20-12.5 mg tablet 2 tab PO DAILY Label Comments: TAKE 2 TABLETS BY MOUTH ONCE DAILY levothyroxine 150 MCG tablet 150 mcg PO DAILY ascorbic ecun-ftuwonje-blq 1,000 MG powder effervescent in packet 1,000 mg PO DAILY cholecalciferol (vitamin D3) 1,000 UNIT tablet 1,000 unit PO DAILY albuterol sulfate [Ventolin HFA] 90 mcg/actuation HFA aerosol inhaler 2 puff INHALATION Q4H PRN PRN (Reason: Shortness Of Breath) Label Comments: INHALE 2 PUFFS BY MOUTH EVERY 4 HOURS NEEDED FOR SHORTNESS OF BREATH, WHEEZING, PERSISTENT COUGH Referrals / Follow Up: Jacque Cee PSYCHOLOGY TEACHER, [facility] [Primary Care Provider] - See Referral Note (call for follow up appointment office was closed when called ) Disposition Disposition (needs filled in before D/C Order can be placed): Home, Self Care Charges/Coding Visit Charges Inpatient E&M: 22283 Disch Hosp
== END 2021-07-26 15:00 | disposition home or self-care (01) | DRG 377 ==
PROVIDERS: Admitting Provider Internal Medicine; PCP Nurse Practitioner Family; Visit Provider Internal Medicine
DX: K57.91 Diverticulosis of intestine, part unspecified, without perforation or abscess with bleeding (principal); U07.1 COVID-19; E87.1 Hypo-osmolality and hyponatremia; E87.8 Other disorders of electrolyte and fluid balance, not elsewhere classified; J44.9 Chronic obstructive pulmonary disease, unspecified; I10 Essential (primary) hypertension; E87.6 Hypokalemia; E89.0 Postprocedural hypothyroidism; Z87.891 Personal history of nicotine dependence; Z79.899 Other long term (current) drug therapy; Z79.890 Hormone replacement therapy
CPT/HCPCS: 36415; 80048; 85014; 85018; 85025; 99406; J7030; A4216